=== PATIENT | male | born 1980 | race Caucasian/White ===

== ENCOUNTER 2019-04-11 04:10 | Emergency (ER) | payer SELFPAY ==
[~2019-04-11] VITALS: Ht 180.3 cm; Wt 81.0 kg
[2019-04-11 05:14] LABS: BASOPHILS # (AUTO) 0.04 x10^3/uL (0-0.1); BASOPHILS % (AUTO) 0 % (0-1); EOSINOPHILS # (AUTO) 0.11 x10^3/uL (0-0.4); EOSINOPHILS % (AUTO) 1 % (1-7); LYMPHOCYTES # (AUTO) 1.61 x10^3/uL (1-3.4); LYMPHOCYTES % (AUTO) 16 % (22-44); MD NO; MEAN CORPUSCULAR HEMOGLOBIN 31.5 pg (27.5-34.5); MEAN CORPUSCULAR HGB CONC 33.6 g/dL (33.2-36.2); MEAN CORPUSCULAR VOLUME 93.8 fL (81-97); MEAN PLATELET VOLUME 9.8 fL (7.4-10.4); MONOCYTES # (AUTO) 0.69 x10^3/uL (0.2-0.8); MONOCYTES % (AUTO) 7 % (2-9); NEUTROPHILS # (AUTO) 7.46 x10^3/uL (1.8-6.8); NEUTROPHILS % (AUTO) 75 % (42-75); PLATELET COUNT 247 x10^3/uL (130-400); RED BLOOD COUNT 5.19 x10^6/uL (4.38-5.82); RED CELL DISTRIBUTION WIDTH 12.6 % (9.4-14.8)
[2019-04-11] MEDS ORDERED: ACETAMINOPHEN 325 MG TABLET ONE (05:22)
[2019-04-11 05:25] LABS: ALANINE AMINOTRANSFERASE 17 U/L (12-78); ALBUMIN 3.8 g/dL (3.4-5.0); ANION GAP 9 mmol/L (5-15); CALCIUM 8.7 mg/dL (8.5-10.1); CHLORIDE 106 mmol/L (98-107); CREATININE 0.92 mg/dL (0.7-1.3)
[2019-04-11 05:27] LABS: ALKALINE PHOSPHATASE 80 U/L (45-117); BILIRUBIN,TOTAL 0.7 mg/dL (0.2-1.0); TOTAL PROTEIN 7.5 g/dL (6.4-8.2)
[2019-04-11] MEDS ORDERED: ACETAMINOPHEN 325 MG TABLET PO ONE (05:30)
[2019-04-11 06:44] VITALS: BP 138/86
--- NOTE | 2019-04-11 06:58 | NUR ---
REPORT RECEIVED FROM TALHA BAZAN.
--- NOTE | 2019-04-11 07:38 | NUR ---
PT IS UPSET ABOUT EXAMINATION FROM EDMD. EDMD/PA NOTIFIED. PA DISCUSSED WITH PT.
--- NOTE | 2019-04-11 07:43 | NUR ---
Patient given discharge instructions and they have confirmed that they understand the instructions.
== END 2019-04-11 07:44 | disposition home or self-care (01) ==
LOC: ED 07:33
DX: K42.9 Umbilical hernia without obstruction or gangrene (principal); R10.32 Left lower quadrant pain; R10.31 Right lower quadrant pain
CPT/HCPCS: 36415; 80053; 83690; 85025; 99283